=== PATIENT | male | born 2000 | race Caucasian/White ===

== ENCOUNTER 2021-01-24 20:09 | Emergency (ER) | payer MEDICAID ==
--- NOTE | 2021-01-24 20:17 | ERPHSYRPT ---
- History of Present Illness Time Seen by Provider: 01/24/21 20:16 Source: patient Exam Limitations: no limitations Physician History: This is a 20-year-old white male has chronic recurrent dental caries and dental pain. He has no known drug allergies. He has not seen a dentist. He has pain in the right lower molars been present for several days. He is aware that the dentist will not see the patient for intervening without being treated with antibiotics first. Timing/Duration: intermittent, days (Few days) Severity: mild (To moderate) ENT Location: dental Prearrival Treatment: no prearrival treatment Associated Symptoms: tooth pain Allergies/Adverse Reactions: No Known Drug Allergies Allergy (Unverified 01/24/21 20:23) Home Medications: Cetirizine HCl [Zyrtec] 10 mg PO DAILY 01/24/21 [History] Travel Risk - International Travel Have you traveled outside of the country in past 3 weeks: No - Coronavirus Screening Are you exhibiting any of the following symptoms?: No Close contact with a COVID-19 positive Pt in past 14-21 Days: No - Review of Systems Constitutional: No Symptoms Eyes: No Symptoms Ears, Nose, & Throat: Other (Dental pain right molars) Respiratory: No Symptoms Cardiac: No Symptoms Abdominal/Gastrointestinal: No Symptoms Genitourinary Symptoms: No Symptoms Musculoskeletal: No Symptoms Skin: No Symptoms Neurological: No Symptoms Psychological: No Symptoms Endocrine: No Symptoms Hematologic/Lymphatic: No Symptoms Immunological/Allergic: No Symptoms All Other Systems: Reviewed and Negative - Past Medical History Pertinent Past Medical History: No - Past Surgical History Past Surgical History: No - Nursing Vital Signs Nursing Vital Signs: Initial Vital Signs Temperature 98.1 F 01/24/21 20:22 Pulse Rate 90 01/24/21 20:22 Respiratory Rate 18 01/24/21 20:22 Blood Pressure 142/81 01/24/21 20:22 O2 Sat by Pulse Oximetry 98 01/24/21 20:22 Pain Scale Pain Intensity 10 - Physical Exam General Appearance: no apparent distress, alert, anxiety Eye Exam: bilateral eye: normal inspection, PERRL, EOMI Ear Exam: bilateral ear: auricle normal Nasal Exam: normal inspection Throat Exam: dental tenderness (Lower molars) Neck Exam: normal inspection, non-tender, supple, full range of motion Cardiovascular/Respiratory Exam: chest non-tender, no respiratory distress Abdominal Exam: non-tender Neurologic Exam: alert, oriented x 3, cooperative, law enforcement officer II-XII nml as tested, normal mood/affect, nml cerebellar function, nml station & gait, sensation nml Skin Exam: normal color, warm, dry SpO2 Interpretation: normal O2 Delivery: Room Air - Course Nursing assessment & vital signs reviewed: Yes Ordered Tests: Medication Summary Generic Name Dose Route Start Last Admin Trade Name Freq PRN Reason Stop Dose Admin Acetaminophen/Codeine Phosphate 1 tab 01/24/21 20:42 Tylenol #3 Tablet PO 01/24/21 20:43 STAT ONE Amoxicillin 500 mg 01/24/21 20:42 Amoxil 500 Mg PO 01/24/21 20:43 STAT ONE - Progress Progress: unchanged Counseled pt/family regarding: diagnosis, need for follow-up - Departure Departure Disposition: Home Clinical Impression: Dental caries, Pain, dental Condition: Stable Critical Care Time: No Additional Instructions: Take medication as prescribed. Use Tylenol and ibuprofen for pain control. Follow-up with dentist for definitive care. Prescriptions: Amoxicillin 500 mg Cap [Amoxil 500 mg] 500 mg PO TID #30 capsule
[2021-01-24 20:23] VITALS: O2SAT 98
[2021-01-24] MEDS ORDERED: Tylenol #3 Tablet PO ONE (20:42)
[2021-01-24] MEDS ORDERED: AMOXIL 500 MG PO ONE (20:42)
[2021-01-24] MEDS ORDERED: Tylenol #3 Tablet ONE (20:54)
[2021-01-24] MEDS ORDERED: AMOXIL 500 MG ONE (20:54)
[2021-01-24 21:00] VITALS: BP 124/83; PULSE 79
== END 2021-01-24 21:00 | disposition home or self-care (01) ==
LOC: ED 20:09
DX: K02.9 Dental caries, unspecified (principal); K08.89 Other specified disorders of teeth and supporting structures
CPT/HCPCS: 99283; A9270-GY